=== PATIENT | male | born 1935 ===

== ENCOUNTER 2021-12-18 19:44 | Emergency (ER) | payer MEDICARE, SELFPAY ==
[2021-12-18] VITALS (11 sets, daily range): BP systolic 185–230; BP diastolic 77–93; PULSE 65–98; RESP 13–27; TEMP 36.4; O2SAT 91–97; BMI 30.4
[2021-12-18 20:11] LABS: Add Manual Diff / Slide Review NO; Basophils Absolute Auto 0 /uL (0-100); Basophils Percent Auto 0.3 % (0-2); Eosinophils Absolute Auto 100 /uL (0-450); Eosinophils Percent Auto 1.9 % (2-4); Hematocrit 40.9 % (41-53); Hemoglobin 13.3 g/dL (13.5-17.5); Lymphocytes Absolute Auto 1100 /uL (1100-4500); Lymphocytes Percent Auto 17.5 % (25-40); Mean Corpuscular HGB Conc 32.6 % (30-36); Mean Corpuscular Hemoglobin 28.1 PG (26-34); Monocytes Absolute Auto 400 /uL (0-900); Monocytes Percent Auto 6.1 % (3-14); Neutrophils Absolute Auto 4700 /uL (1500-7000); Neutrophils Percent Auto 74.2 % (50-75); Platelet Count 168 X10^3/uL (150-400); Red Blood Cell Count 4.76 X10^6/uL (4.5-5.9); Red Cell Distribution Width 13.1 % (11.6-14.8); White Blood Cell Count 6.3 X10^3/uL (4.5-11.0)
--- NOTE | 2021-12-18 20:14 | ED.GENADULT ---
HPI - General Adult General Chief complaint: Dizziness Stated complaint: Fall GLF Time Seen by Provider: 12/18/21 19:52 Source: patient Mode of arrival: EMS History of Present Illness HPI narrative: Patient is an 86-year-old male. He arrived by EMS for evaluation of right hip pain after falling at home. Patient states that he was at home in his normal state health. He felt a little dizzy and fell over. He states he did not hit his head. Has no neck pain. He is not on blood thinners. States he is having pain in his right hip. He reports no other injuries from the event. At the time of the fall he was not having chest pain. No shortness of breath. No palpitations. There was no loss of consciousness. There is no vision changes. Related Data Allergies Allergy/AdvReac Type Severity Reaction Status Date / Time No Known Drug Allergies Allergy Verified 12/18/21 19:54 Review of Systems Review of Systems ROS Unobtainable: All systems reviewed & are unremarkable except as noted in HPI and below Patient History Medical History Pacemaker Sleep apnea Surgical History (Updated 12/18/21 @ 20:16 by Reyna Cannon RN) Hip joint replacement status Social History Smoking Status: Unknown if ever smoked Smoking Status: Unknown if ever smoked alcohol intake frequency: holidays/special occasions only Substance Use Type: does not use Exam Initial Vital Signs Initial Vital Signs: Vital Signs Temperature 97.6 F 12/18/21 19:50 Pulse Rate 75 12/18/21 19:50 Respiratory Rate 27 H 12/18/21 19:50 Blood Pressure 200/93 H 12/18/21 19:50 Pulse Oximetry 97 12/18/21 19:50 Const General: cooperative and comfortable HENMT Head: normal to inspection Resp Effort & Inspection: normal respiratory effort Auscultation: clear to auscultation bilaterally Cardio Rate: regular rate Rhythm: regular rhythm GI Palpation: soft and No tender Back/Spine/Pelvis Thoracic/Lumbar Spine: paraspinal tenderness (Lumbar region), No thoracic spinal tenderness and lumbar spinal tenderness Skin General: no rashes or lesions noted Neuro General: patient alert, patient awake and moves all extremities Extrem Other: Does have tenderness to palpation of the right hemipelvis. His right knee and right ankle unremarkable. His left lower extremities unremarkable. Upper extremities unremarkable. Psych Appearance: grossly normal and well kempt Course Orders Ordered: ED Orders 12/18/21 19:54 EKG-12 Lead Stat 12/18/21 20:00 Complete Blood Count AUTO DIFF Stat Comprehensive Metabolic Panel Stat Lipase Stat Troponin & CK Cardiac Panel Stat 12/18/21 20:15 XR hip w pel if done RT 2V Stat XR lumbar spine 2-3V Stat 12/18/21 20:17 Urine Microscopic Stat Discontinued Medications Acetaminophen (Acetaminophen 325 Mg Tablet) 650 mg PO NOW ONE Stop: 12/18/21 23:19 Last Admin: 12/18/21 23:23 Dose: 650 mg Documented by: KELLEE Vital Signs Vital signs: Vital Signs - 8 hr 12/18/21 21:00 12/18/21 21:01 12/18/21 21:40 Pulse Rate 66 65 98 H Respiratory Rate Blood Pressure 208/81 H Pulse Oximetry 12/18/21 22:00 12/18/21 22:30 12/18/21 22:31 Pulse Rate 73 65 66 Respiratory Rate 23 13 13 Blood Pressure 196/84 H 185/77 H Pulse Oximetry 95 92 91 Medical Decision Making Lab Data Lab results reviewed: Yes I reviewed the patient's lab results. Result diagrams: 12/18/21 20:00 12/18/21 20:00 Labs: Lab Results 12/18/21 12/18/21 12/18/21 Range/Units 20:00 20:00 20:17 WBC 6.3 (4.5-11.0) X10^3/uL RBC 4.76 (4.5-5.9) X10^6/uL Hgb 13.3 L (13.5-17.5) g/dL Hct 40.9 L (41-53) % MCV 86.0 (80-100) fL MCH 28.1 (26-34) PG MCHC 32.6 (30-36) % RDW 13.1 (11.6-14.8) % Plt Count 168 (150-400) X10^3/uL Neut % (Auto) 74.2 (50-75) % Lymph % (Auto) 17.5 L (25-40) % Hendricks % (Auto) 6.1 (3-14) % Eos % (Auto) 1.9 L (2-4) % Baso % (Auto) 0.3 (0-2) % Neut # (Auto) 4700 (1910-8734) /uL Lymph # (Auto) 1100 (9288-2423) /uL Hendricks # (Auto) 400 (0-900) /uL Eos # (Auto) 100 (0-450) /uL Baso # (Auto) 0 (0-100) /uL Sodium 141 (137-145) mmol/L Potassium 4.4 (3.4-5.1) mmol/L Chloride 105 (98-107) mmol/L Carbon Dioxide 31 (22-32) mmol/L BUN 29 H (9-20) mg/dL Creatinine 1.17 (0.66-1.25) mg/dL Estimated GFR 59.0 L (>60) mL/min BUN/Creatinine Ratio 24.8 H (6-22) Glucose 213 H (80-110) mg/dL Calcium 9.4 (8.4-10.2) mg/dL Total Bilirubin 1.4 H (0.2-1.3) mg/dL AST 29 (17-59) IU/L ALT 23 (<50) IU/L Alkaline Phosphatase 69 (38-126) U/L Total Creatine Kinase 55 (55-170) U/L CK-MB (CK-2) TNP CK-MB (CK-2) Rel Index TNP Troponin I 0.019 (0.01-0.034) ng/mL Total Protein 7.1 (6.3-8.2) g/dL Albumin 4.2 (3.5-5.0) g/dL Globulin 2.9 (1.7-4.1) g/dL Albumin/Globulin Ratio 1.4 (1.0-2.8) Lipase 130 (23-300) U/L Urine RBC None seen (0-5/HPF) Urine WBC 0-1/hpf (0-5/HPF) Ur Squamous Epith Cells 0-1 /hpf (0-5/HPF) Urine Bacteria None seen (None) Hyaline Casts 0-1/lpf (None) Granular Casts 0-1/lpf (None) Ur Culture Indicated? Cult not indicated Urine Dip Bedside Urine Glucose 250 mg/dl Bedside Urine Bilirubin - Negative Bedside Urine Ketone - Negative Urine Specific [place] 1.020 Bedside Urine Occult Blood - Negative Bedside Urine pH 6.0 Bedside Urine Protein + 30 Bedside Urine Urobilinogen - Negative Bedside Urine Nitrite - Negative Bedside Urine Leukocytes - Negative Esterase Point of care testing: Urine Dip Bedside Urine Glucose 250 mg/dl Bedside Urine Bilirubin - Negative Bedside Urine Ketone - Negative Urine Specific [place] 1.020 Bedside Urine Occult Blood - Negative Bedside Urine pH 6.0 Bedside Urine Protein + 30 Bedside Urine Urobilinogen - Negative Bedside Urine Nitrite - Negative Bedside Urine Leukocytes - Negative Esterase Imaging Data Extremity x-ray #1: Radiologist's Impression: [address] [address] XRay Report Signed Patient: Demetrius Alvarado MR#: [id number] : 1935 Acct:[id number] Age/Sex: 86 / M Date of Service: 12/18/21 Loc: ED Accession Number: [id number] ?? Procedure: XR hip w pel if done RT 2V Ordering Provider: Richard De La Garza D.O. PROCEDURE:? XR HIP W PEL IF DONE RT 2V ? INDICATIONS:? Fall with hip pain ? TECHNIQUE:? AP pelvis and lateral view of the right hip acquired.? ? COMPARISON:? None. ? FINDINGS:? ? Bones:? Patient is status post right hip arthroplasty, with hardware components in expected positions.? The hip joint appears congruent.? The visualized bony structures appear intact.? ? Soft tissues:? Overlying postoperative changes are noted.? No suspicious soft tissue densities.? ? ? IMPRESSION:? 1. Expected appearance of right hip arthroplasty. 2. No acute fracture. No osseous lesion. If symptoms and/or clinical suspicion for pathology persist, further assessment with repeat, or advanced imaging (e.g., CT or bone scan) may be helpful for further assessment. ? Dictated by: Kilo Guerrreo M.D. on 12/18/2021 at 20:40 ? ? Approved by: Kilo Guerrero M.D. on 12/18/2021 at 20:40?? Lumbar spine x-ray: Radiologist's Impression: [address] [address] XRay Report Signed Patient: Demetrius Alvarado MR#: [id number] : 1935 Acct:[id number] Age/Sex: 86 / M Date of Service: 12/18/21 Loc: ED Accession Number: [id number] ?? Procedure: XR lumbar spine 2-3V Ordering Provider: Richard De La Garza D.O. PROCEDURE:? XR LUMBAR SPINE 2-3V ? INDICATIONS:? Lower back pain after fall ? TECHNIQUE:? 2 views of the lumbar spine were acquired.? ? COMPARISON:? None. ? FINDINGS:? ? Bones:? 5 [id number] vertebrae are present.? There is normal bony alignment.? Multilevel disc space narrowing and endplate osteophyte formation.? Facet hypertrophy throughout the mid and lower lumbar spine.? No vertebral body compression fractures.? No suspicious bony lesions.? ? Soft tissues:? Overlying bowel gas pattern is normal.? No suspicious soft tissue calcifications.? Left iliac stent is present. ? ? IMPRESSION:? Multilevel degenerative disc and facet disease. No acute fracture. No osseous lesion. If symptoms and/or clinical suspicion for pathology persist, further assessment with repeat, or advanced imaging (e.g., CT, MRI, or bone scan) may be helpful for further assessment. ? ? Dictated by: Kilo Guerrero M.D. on 12/18/2021 at 20:36 ? ? Approved by: Kilo Guerrero M.D. on 12/18/2021 at 20:37?? ECG Data Attestation: I personally reviewed and interpreted this ECG as follows: Interpretation: Ventricularly paced Rate is 74 MDM Narrative Medical decision making narrative: X-rays of his lumbar spine and right hip are unremarkable. There is no signs of any acute pathology. He reports no other injuries from the event. He was able to stand and ambulate with the walker at bedside here in the emergency department. Patient discharged home with his . Discharge Plan Departure Patient Disposition: Home Clinical Impression: Hip pain, right, Fall Instructions: How to Prevent Falls Activity Restrictions/Additional Instructions: Continue to take all of your medications as directed. Contact your primary doctor for a follow-up and return to the emergency department for any new or worsening symptoms.
--- NOTE | 2021-12-18 20:15 | DI.RAD.S_ITS ---
PROCEDURE: XR LUMBAR SPINE 2-3V INDICATIONS: Lower back pain after fall TECHNIQUE: 2 views of the lumbar spine were acquired. COMPARISON: None. FINDINGS: Bones: 5 [id number] vertebrae are present. There is normal bony alignment. Multilevel disc space narrowing and endplate osteophyte formation. Facet hypertrophy throughout the mid and lower lumbar spine. No vertebral body compression fractures. No suspicious bony lesions. Soft tissues: Overlying bowel gas pattern is normal. No suspicious soft tissue calcifications. Left iliac stent is present. IMPRESSION: Multilevel degenerative disc and facet disease. No acute fracture. No osseous lesion. If symptoms and/or clinical suspicion for pathology persist, further assessment with repeat, or advanced imaging (e.g., CT, MRI, or bone scan) may be helpful for further assessment. Dictated by: Kilo Guerrero M.D. on 12/18/2021 at 20:36 Approved by: Kilo Guerrero M.D. on 12/18/2021 at 20:37
--- NOTE | 2021-12-18 20:15 | DI.RAD.S_ITS ---
PROCEDURE: XR HIP W PEL IF DONE RT 2V INDICATIONS: Fall with hip pain TECHNIQUE: AP pelvis and lateral view of the right hip acquired. COMPARISON: None. FINDINGS: Bones: Patient is status post right hip arthroplasty, with hardware components in expected positions. The hip joint appears congruent. The visualized bony structures appear intact. Soft tissues: Overlying postoperative changes are noted. No suspicious soft tissue densities. IMPRESSION: 1. Expected appearance of right hip arthroplasty. 2. No acute fracture. No osseous lesion. If symptoms and/or clinical suspicion for pathology persist, further assessment with repeat, or advanced imaging (e.g., CT or bone scan) may be helpful for further assessment. Dictated by: Kilo Guerrero M.D. on 12/18/2021 at 20:40 Approved by: Kilo Guerrero M.D. on 12/18/2021 at 20:40
[2021-12-18 20:24] LABS: Alanine Aminotransferase 23 IU/L (<50); Albumin 4.2 g/dL (3.5-5.0); Albumin Globulin Ratio 1.4 (1.0-2.8); Alkaline Phosphatase 69 U/L (38-126); Aspartate Aminotransferase 29 IU/L (17-59); BUN Creatinine Ratio 24.8 (6-22); Bilirubin Total 1.4 mg/dL (0.2-1.3); Blood Urea Nitrogen 29 mg/dL (9-20); Calcium 9.4 mg/dL (8.4-10.2); Carbon Dioxide 31 mmol/L (22-32); Chloride 105 mmol/L (98-107); Creatine Kinase 55 U/L (55-170); Globulin 2.9 g/dL (1.7-4.1); Glucose 213 mg/dL (80-110); HEMOLYSIS < 15 (0-50); Lipase 130 U/L (23-300); Potassium 4.4 mmol/L (3.4-5.1); Sodium 141 mmol/L (137-145); Total Protein 7.1 g/dL (6.3-8.2)
[2021-12-18 20:36] LABS: Troponin I 0.019 ng/mL (0.01-0.034)
[2021-12-18 21:04] LABS: Bacteria Urine None Seen; Culture Indicated Urine Cult Not Indicated; Granular Casts Urine 0-1/LPF; Hyaline Casts Urine 0-1/LPF; RBC Urine None Seen (0-5/HPF); Squamous Epithelial Cell Urine 0-1 /HPF (0-5/HPF); WBC Urine 0-1/HPF (0-5/HPF)
[2021-12-18] MEDS: ACETAMINOPHEN 325 MG TABLET 650 MG PO (23:23)
== END 2021-12-18 23:24 | disposition home or self-care (01) ==
PROVIDERS: Emergency Provider Emergency Medicine
DX: M25.551 Pain in right hip (principal); R42 Dizziness and giddiness; R03.0 Elevated blood-pressure reading, without diagnosis of hypertension; M54.50 Low back pain, unspecified; W18.30XA Fall on same level, unspecified, initial encounter; Z95.0 Presence of cardiac pacemaker
CPT/HCPCS: 36415; 72100; 73502; 80053; 81003; 81015; 82550; 83690; 84484; 85025; 93005; 99284